=== PATIENT | female | born 1930 | race Hispanic/Latino ===

== ENCOUNTER 2017-06-10 09:36 | Emergency (ER) | payer OTHER ==
[2017-06-10] MEDS ORDERED: NITROGLYCERIN 1GM/1 INCH PACKET TD ONE (09:56)
[2017-06-10] MEDS ORDERED: ASPIRIN 325 MG TABLET ONE (09:56)
[2017-06-10 10:01] LABS: BASOPHILS % (AUTO) 0.8 % (0.0-5.0); EOSINOPHILS % (AUTO) 0.7 % (0.0-8.0); HEMATOCRIT 39.8 % (36-48); LYMPHOCYTES % (AUTO) 28.3 % (21.0-51.0); MEAN CORPUSCULAR HEMOGLOBIN 29.9 pg (27.0-33.0); MEAN CORPUSCULAR HGB CONC 34.6 g/dL (32.0-36.0); MEAN CORPUSCULAR VOLUME 86.3 fL (79-99); MONOCYTES % (AUTO) 6.1 % (3.0-13.0); NEUTROPHILS % (AUTO) 64.1 % (40.0-77.0); PLATELET COUNT (AUTO) 259 K/uL (130-400); RED BLOOD CELL COUNT(AUTO) 4.61 MIL/uL (4.00-5.50); WHITE BLOOD COUNT (AUTO) 5.7 K/uL (4.8-10.8)
[2017-06-10 10:11] LABS: CREATININE 0.6 mg/dL (0.5-1.5); POTASSIUM 3.3 mmol/L (3.5-5.1)
[2017-06-10 10:22] LABS: ALBUMIN 3.5 g/dL (3.5-5.0); BILIRUBIN,TOTAL 0.4 mg/dL (0.2-1.0); TOTAL PROTEIN, SERUM 7.2 g/dL (6.0-8.3)
[2017-06-10 10:24] LABS: CREATINE KINASE MB 0.8 ng/mL (0.5-3.6)
== END 2017-06-10 11:55 | disposition home or self-care (01) ==
LOC: EDH 09:36
DX: R07.89 Other chest pain (principal); M54.2 Cervicalgia; E11.9 Type 2 diabetes mellitus without complications; Z88.0 Allergy status to penicillin; Z88.1 Allergy status to other antibiotic agents
CPT/HCPCS: 36415; 71045; 80053; 82550; 82553; 83880; 84484; 85025; 93005

== ENCOUNTER 2017-06-23 08:07 | Observation (INO) | payer OTHER ==
[~2017-06-23] VITALS: Ht 154.9 cm; Wt 46.8 kg
[2017-06-23] MEDS ORDERED: SODIUM CHLORIDE 0.9% 1000ML 1,000 ML IV ONE ×2 (08:23→11:58)
[2017-06-23] MEDS ORDERED: ACETAMINOPHEN ELIXIR 650 MG/20.3 ML UDCUP ONE (08:33)
[2017-06-23 08:44] LABS: BASOPHILS % (AUTO) 0.1 % (0.0-5.0); HEMATOCRIT 36.5 % (36-48); LYMPHOCYTES % (AUTO) 2.9 % (21.0-51.0); MEAN CORPUSCULAR HEMOGLOBIN 29.2 pg (27.0-33.0); MEAN CORPUSCULAR HGB CONC 34.3 g/dL (32.0-36.0); MEAN CORPUSCULAR VOLUME 85.2 fL (79-99); MONOCYTES % (AUTO) 0.1 % (3.0-13.0); NEUTROPHILS % (AUTO) 96.9 % (40.0-77.0); PLATELET COUNT (AUTO) 350 K/uL (130-400); RED BLOOD CELL COUNT(AUTO) 4.28 MIL/uL (4.00-5.50); WHITE BLOOD COUNT (AUTO) 14.9 K/uL (4.8-10.8)
[2017-06-23 08:50] LABS: CREATININE 0.7 mg/dL (0.5-1.5); GLOMERULAR FILTR. RATE CALC 85 mL/min (>60); SODIUM SERUM 138 mmol/L (136-145)
[2017-06-23 09:05] LABS: ALANINE AMINOTRANSFERASE 13 U/L (12-78); ASPARTATE AMINOTRANSFERASE 26 U/L (10-37); BILIRUBIN,TOTAL 0.7 mg/dL (0.2-1.0)
[2017-06-23 09:10] LABS: BILIRUBIN,URINE Negative (NEGATIVE); COLOR,URINE Yellow (YELLOW); GLUCOSE, URINE (UA) 250 mg/dL (NEGATIVE); KETONES,URINE Negative (NEGATIVE); LEUKOCYTE ESTERASE ,URINE Negative (NEGATIVE); NITRATE,URINE Positive (NEGATIVE); OCCULT BLOOD,URINE Moderate (NEGATIVE); PROTEIN,URINE POS 1+ (NEGATIVE); UROBILINOGEN,URINE 0.2 mg/dL (0.2-1.0)
[2017-06-23 09:14] LABS: APPEARANCE,URINE HAZY (CLEAR)
[2017-06-23 09:15] LABS: INR 1.01 (0.85-1.15); PARTIAL THROMBOPLASTIN TIME 24.7 SEC (26.3-35.5); PROTHROMBIN TIME 10.6 SEC (9.6-11.6)
[2017-06-23 09:21] LABS: BACTERIA,URINE Many /HPF (None Seen); RBC,URINE 0-1 /HPF (0-1); SQUAMOUS EPITHELIAL CELL,UR Rare /HPF (0-2); WBC,URINE 0-1 /HPF (0-1)
[2017-06-23 09:31] LABS: CARBON DIOXIDE 25 mmol/L (21-32); CHLORIDE 101 mmol/L (101-111); CREATINE KINASE MB < 0.5 ng/mL (0.5-3.6); CREATINE KINASE, TOTAL 39 U/L (21-232); GLUCOSE,RANDOM 220 mg/dL (70-105); MYOGLOBIN 25 ng/mL (10-92); TOTAL PROTEIN, SERUM 6.8 g/dL (6.0-8.3); TROPONIN I 0.04 ng/mL (0.00-0.06); UREA NITROGEN, BLOOD 12 mg/dL (7-18)
[2017-06-23] MEDS ORDERED: LEVOFLOXACIN 750 MG/D5W 150 ML 150 ML ONE (09:32)
[2017-06-23 09:33] LABS: POTASSIUM 2.9 mmol/L (3.5-5.1)
[2017-06-23] MEDS ORDERED: POTASSIUM BICARB/CIT AC 25 MEQ TABLET.EFF ONE (09:42)
[2017-06-23] MEDS ORDERED: GUAIFENESIN-DM 200/20 MG 10 ML PO PRN (10:45)
[2017-06-23] MEDS ORDERED: HYDRALAZINE HCL 20 MG/ML VIAL IV PRN (10:45)
[2017-06-23] MEDS ORDERED: ACETAMINOPHEN 325 MG TAB PO PRN ×2 (10:45)
[2017-06-23] MEDS ORDERED: MAG HYDROX/AL HYDROX/SIMETH ES 30 ML SUSP UDCUP PO PRN (10:45)
[2017-06-23] MEDS ORDERED: ONDANSETRON HCL 4 MG/2 ML VIAL IV PRN (10:45)
[2017-06-23] MEDS ORDERED: MORPHINE SULFATE 4 MG/1ML SYG IV PRN ×2 (10:45)
[2017-06-23] MEDS ORDERED: NITROGLYCERIN 0.4 MG SL TAB SL PRN (10:45)
[2017-06-23] MEDS ORDERED: LACTULOSE 20 GM/30 ML UDCUP PO PRN (10:45)
[2017-06-23] MEDS ORDERED: ACETAMINOPHEN-CODEINE 300/30MG TAB PO PRN ×2 (10:45)
[2017-06-23] MEDS ORDERED: IPRATROPIUM/ALBUTEROL SULFATE 3 ML SOLUTION IH ONE (11:14)
[2017-06-23] MEDS ORDERED: POTASSIUM CHLORIDE 10% ELIXIR 20 MEQ/15 ML UDCUP PO PRN (15:00)
[2017-06-23] MEDS ORDERED: POTASSIUM CHLORIDE 20MEQ/100ML 100 ML IV PRN (15:00)
[2017-06-23] MEDS ORDERED: LIDOCAINE HCL-MPF 1% 2ML VIAL IVP PRN (15:00)
[2017-06-23] MEDS ORDERED: OSELTAMIVIR PHOSPHATE 75 MG CAP PO SCH ×2 (16:00→21:00)
[2017-06-23 17:19] VITALS: BP 123/50
[2017-06-23] MEDS: BENZONATATE 100 MG CAPSULE PO SCH ×2 (17:30→21:07)
[2017-06-23] MEDS: SODIUM CHLORIDE 0.9% 1000ML 1,000 ML IV SCH (17:30)
[2017-06-23] MEDS: INSULIN HUMULIN R 100 UNIT/ML 3ML SQ SCH ×2 (17:47→21:00)
[2017-06-23] MEDS ORDERED: COMPOUND PO MISCELLANEOUS 1 EACH MISC MISC PRN (18:00)
[2017-06-23] MEDS: IPRATROPIUM/ALBUTEROL SULFATE 3 ML SOLUTION IH SCH ×2 (18:56→23:10)
[2017-06-23 19:00] VITALS: BP 135/54
[2017-06-23] MEDS: OSELTAMIVIR PHOSPHATE 300 MG, COMPOUNDING VEHICLE SF NO.9 50 ML PO SCH ×2 (21:07)
[2017-06-23 23:00] VITALS: BP 126/58
[2017-06-24] MEDS: SODIUM CHLORIDE 0.9% 1000ML 1,000 ML IV SCH ×2 (02:00→11:35)
[2017-06-24 03:00] VITALS: BP 143/57
[2017-06-24 04:05] LABS: CREATININE 0.6 mg/dL (0.5-1.5); MAGNESIUM 1.6 mg/dL (1.80-2.40); POTASSIUM 3.3 mmol/L (3.5-5.1)
[2017-06-24 04:06] LABS: HEMATOCRIT 31.2 % (36-48); MEAN CORPUSCULAR HEMOGLOBIN 30.3 pg (27.0-33.0); MEAN CORPUSCULAR HGB CONC 35.2 g/dL (32.0-36.0); MEAN CORPUSCULAR VOLUME 86.2 fL (79-99); PLATELET COUNT (AUTO) 252 K/uL (130-400); RED BLOOD CELL COUNT(AUTO) 3.61 MIL/uL (4.00-5.50); RED CELL DISTRIBUTION WIDTH 14.2 % (11.0-15.5); WHITE BLOOD COUNT (AUTO) 17.7 K/uL (4.8-10.8)
[2017-06-24 05:21] LABS: BAND NEUTROPHILS % (MANUAL) 12 % (0-2); LYMPHOCYTES % (MANUAL) 3 % (22-44); MAN.DIFF COMMENT-IMPRESSION MANUAL DIFFERENTIAL; METAMYELOCYTES % 1 % (0-0); MONOCYTES % (MANUAL) 3 % (2-9); SEGMENTED NEUTROPHILS % 81 % (40-70)
[2017-06-24 05:22] LABS: PLATELET MORPHOLOGY COMMENT ADEQUATE
[2017-06-24] MEDS: IPRATROPIUM/ALBUTEROL SULFATE 3 ML SOLUTION IH SCH ×4 (06:49→23:41)
[2017-06-24] MEDS: INSULIN HUMULIN R 100 UNIT/ML 3ML SQ SCH ×4 (07:30→20:23)
[2017-06-24 07:49] VITALS: BP 137/45
[2017-06-24] MEDS ORDERED: MAGNESIUM 2GM PREMIX 50ML 50 ML IV PRN (10:00)
[2017-06-24] MEDS: FAMOTIDINE 20MG TAB 20 MG TAB PO SCH (10:11)
[2017-06-24] MEDS: BENZONATATE 100 MG CAPSULE PO SCH ×3 (10:11→20:23)
[2017-06-24] MEDS: ENOXAPARIN SODIUM 30 MG/0.3 ML SQ SCH (10:12)
[2017-06-24] MEDS: OSELTAMIVIR PHOSPHATE 300 MG, COMPOUNDING VEHICLE SF NO.9 50 ML PO SCH ×4 (10:17→20:22)
[2017-06-24] MEDS ORDERED: GLIP10TA9 PO (10:38)
[2017-06-24] MEDS ORDERED: LOSA25TA21 PO (10:38)
[2017-06-24] MEDS ORDERED: METF10004 PO (10:38)
[2017-06-24] MEDS ORDERED: POTA-9 PO (10:38)
[2017-06-24] MEDS ORDERED: ASPI-555 PO (10:38)
[2017-06-24] MEDS: LEVOFLOXACIN 500 MG/D5W 100 ML 100 ML IV SCH (11:29)
[2017-06-24] MEDS: POTASSIUM CHLORIDE 20 MEQ ERTAB PO PRN ×3 (11:31→17:41)
[2017-06-24 11:35] VITALS: BP 115/48
[2017-06-24 16:16] VITALS: BP 114/50
[2017-06-24] MEDS: METFORMIN HCL 500 MG TABLET PO SCH (17:37)
[2017-06-24] MEDS: GLIPIZIDE 5 MG TABLET PO SCH (17:38)
[2017-06-24 19:00] VITALS: BP 118/46
[2017-06-24] MEDS ORDERED: DEXTROSE 50%-WATER 50 ML DISP.SYRIN IV ONE (20:18)
[2017-06-24] MEDS: POTASSIUM CHLORIDE 10 MEQ/TAB.SA PO SCH (20:23)
[2017-06-24 23:00] VITALS: BP 140/53
[2017-06-25 03:00] VITALS: BP 137/62
[2017-06-25 04:47] LABS: CREATININE 0.4 mg/dL (0.5-1.5); HEMATOCRIT 31.3 % (36-48); MEAN CORPUSCULAR HEMOGLOBIN 29.6 pg (27.0-33.0); MEAN CORPUSCULAR HGB CONC 34.6 g/dL (32.0-36.0); MEAN CORPUSCULAR VOLUME 85.6 fL (79-99); PLATELET COUNT (AUTO) 210 K/uL (130-400); POTASSIUM 3.7 mmol/L (3.5-5.1); RED BLOOD CELL COUNT(AUTO) 3.66 MIL/uL (4.00-5.50); RED CELL DISTRIBUTION WIDTH 14.2 % (11.0-15.5); WHITE BLOOD COUNT (AUTO) 11.4 K/uL (4.8-10.8)
[2017-06-25] MEDS: INSULIN HUMULIN R 100 UNIT/ML 3ML SQ SCH ×2 (06:39→11:30)
[2017-06-25] MEDS: IPRATROPIUM/ALBUTEROL SULFATE 3 ML SOLUTION IH SCH ×2 (06:50→10:43)
[2017-06-25 08:16] VITALS: BP 119/47
[2017-06-25] MEDS: METFORMIN HCL 500 MG TABLET PO SCH (08:30)
[2017-06-25] MEDS: BENZONATATE 100 MG CAPSULE PO SCH ×2 (08:30→14:00)
[2017-06-25] MEDS: FAMOTIDINE 20MG TAB 20 MG TAB PO SCH (08:31)
[2017-06-25] MEDS: GLIPIZIDE 5 MG TABLET PO SCH (08:31)
[2017-06-25] MEDS: POTASSIUM CHLORIDE 10 MEQ/TAB.SA PO SCH (08:31)
[2017-06-25] MEDS: OSELTAMIVIR PHOSPHATE 300 MG, COMPOUNDING VEHICLE SF NO.9 50 ML PO SCH ×2 (08:32)
[2017-06-25] MEDS: ENOXAPARIN SODIUM 30 MG/0.3 ML SQ SCH (08:36)
[2017-06-25] MEDS ORDERED: ASPIRIN 81 MG EC TAB PO SCH (09:00)
[2017-06-25] MEDS ORDERED: LOSARTAN 50 MG TABLET PO SCH (09:00)
[2017-06-25] MEDS: LEVOFLOXACIN 500 MG/D5W 100 ML 100 ML IV SCH (09:53)
[2017-06-25] MEDS: SODIUM CHLORIDE 0.9% 1000ML 1,000 ML IV SCH (10:04)
[2017-06-25] MEDS ORDERED: AZIT500T4 PO (10:17)
[2017-06-25 12:26] VITALS: BP 113/58
== END 2017-06-25 15:15 | disposition home or self-care (01) ==
LOC: EDH 08:07 → EDHIP 10:41 → 3BH 17:00
PROVIDERS: ADMIT Internal Medicine; ATTEND Internal Medicine
DX: N39.0 Urinary tract infection, site not specified (principal); J20.9 Acute bronchitis, unspecified; R55 Syncope and collapse; I10 Essential (primary) hypertension; E11.9 Type 2 diabetes mellitus without complications; F17.210 Nicotine dependence, cigarettes, uncomplicated; Z83.3 Family history of diabetes mellitus
CPT/HCPCS: 36415 ×3; 70450; 71045; 80048 ×2; 80053; 81001; 82550; 82553; 82948 ×9; 83605 ×2; 83735 ×2; 83874; 84132; 84484; 85025 ×2; 85027; 85610; 85730; 87040 ×2; 87088; 87186 ×2; 87804 ×2; 93005; 94640 ×8; 94664; 96361 ×2; 96365; 96366; 96367; 96372 ×3; 96375; 97161; 99285; A4600; G0378 ×53; G8978; G8979; G8980; G8981; G8982; G8983; J1650 ×2; J1815 ×2; J1956 ×2; J3475; J7030 ×4; J7070